=== PATIENT | male | born 1970 | race Caucasian/White ===

== ENCOUNTER 2023-08-16 07:47 | Day surgery (SDC) | payer BC, OTHER ==
[2023-08-16] MEDS ORDERED: LACTATED RINGERS 1,000 ML IV ONE (08:09)
[2023-08-16 08:20] VITALS: RESP 16; TEMP 97.1
[2023-08-16] MEDS ORDERED: LACTATED RINGERS 1,000 ML IV SCH (08:49)
[2023-08-16] MEDS ORDERED: PROPOFOL 10 MG/ML 20 ML VIAL IV ONE (09:38)
[2023-08-16] MEDS ORDERED: LIDOCAINE 1% INJ 10MG/ML (20 ML MDV) ONE (09:38)
--- NOTE | 2023-08-16 09:44 | P.GSHP ---
History of Present Illness H&P Date: 08/16/23 Chief Complaint: GERD, screening colonoscopy Is a 53-year-old male who complains of GERD symptoms. Patient stated for EGD and screening colonoscopy. Past Medical History Past Medical History: Cancer, GERD/Reflux Additional Past Medical History / Comment(s): brain cancer 23 yrs ago, ringing in ears History of Any Multi-Drug Resistant Organisms: None Reported Past Surgical History: No Surgical Hx Reported Additional Past Surgical History / Comment(s): brain surgery, cataract removal Past Anesthesia/Blood Transfusion Reactions: No Reported Reaction Smoking Status: Never smoker - Past Family History Father Family Medical History: No Reported History Medications and Allergies Home Medications Medication Instructions Recorded Confirmed Type Omeprazole 40 mg PO DAILY 08/10/23 08/16/23 History Allergies Allergy/AdvReac Type Severity Reaction Status Date / Time No Known Allergies Allergy Verified 08/16/23 08:06 Surgical - Exam Vital Signs Temp Pulse Resp BP Pulse Ox 97.1 F L 78 16 147/82 96 08/16/23 08:10 08/16/23 08:10 08/16/23 08:10 08/16/23 08:10 08/16/23 08:10 - General well developed, well nourished, no distress - Eyes PERRL - ENT normal pinna - Neck no masses - Respiratory normal expansion - Cardiovascular Rhythm: regular - Abdomen Abdomen: soft, non tender Assessment and Plan Assessment: Esophageal reflux will perform EGD. Will also perform screening colonoscopy.
--- NOTE | 2023-08-16 10:14 | P.OP ---
Date of Procedure: 08/16/23 Preoperative Diagnosis: GERD Screening colonoscopy Postoperative Diagnosis: Antral gastritis Moderate size hiatal hernia Mild esophagitis Mild diverticulosis Procedure(s) Performed: EGD Colonoscopy Anesthesia: MAC Surgeon: Israel Guerrero Pathology: other (Trim, esophagus) Condition: stable Disposition: PACU Description of Procedure: Patient placed on the endoscopy table in the lateral position. He received IV sedation. The Candi/oropharynx passed in the esophagus and the stomach. Scope was then placed through the pylorus. The first and second portion of the duodenum appeared normal. Scope in the back of the antrum there was mild inflammation. A biopsy was performed. The scope was then retroflexed and there was a moderate size hiatal hernia. The GE junction was at 38 cm. The distal esophagus appeared n Flaim. Biopsies performed. There was a mild inflammatory web seen. The proximal esopha thickness appeared normal. Next digital rectal exam was performed. This revealed no abnormalities. The e colonoscope was then placed patient anus passed throughout the entire colon. The ileocecal valve was visualized. The cecum, ascending and transverse colon appeared normal. In the descending and sigmoid colon there was mild diverticular changes. The scope was then brought back into the rectum and the spinal prescription outpatient.
[2023-08-16 10:53] VITALS: BP 137/86; PULSE 76
== END 2023-08-16 11:03 | disposition home or self-care (01) ==
LOC: ORWHC2ENDO 07:47
PROVIDERS: ATTEND Surgery
DX: Z12.11 Encounter for screening for malignant neoplasm of colon (principal); K21.00 Gastro-esophageal reflux disease with esophagitis, without bleeding; K44.9 Diaphragmatic hernia without obstruction or gangrene; K57.30 Diverticulosis of large intestine without perforation or abscess without bleeding; Z85.841 Personal history of malignant neoplasm of brain; Z79.899 Other long term (current) drug therapy; Z98.890 Other specified postprocedural states
CPT/HCPCS: 88305; 45378; 43239; J2001; J2704

== ENCOUNTER → 2023-09-26 | Outpatient (CLI) | payer BC ==
[2023-09-27 04:08] LABS: Basophils # (A) 0.08 X 10*3/uL (0.00-0.10); Basophils % (A) 0.9 %; Eosinophils # (A) 0.32 X 10*3/uL (0.04-0.35); Eosinophils % (A) 3.4 %; HCT 46.5 % (39.6-50.0); HGB 15.5 g/dL (13.0-17.0); Lymphocytes # (A) 3.03 X 10*3/uL (0.90-5.00); Lymphocytes % (A) 32.4 %; MCH 30.8 pg (27.0-32.0); MCHC 33.3 g/dL (32.0-37.0); MCV 92.3 FL (80.0-97.0); Mean Platelet Volume 9.9 FL (9.5-12.2); Monocytes % (A) 8.5 %; NRBC Per 100 WBC 0 X 10*3/uL (0.00-0.01); Neutrophils % (A) 54.5 %; Platelet Count 265 X 10*3/uL (140-440); RBC 5.04 X 10*6/uL (4.40-5.60); WBC 9.36 X 10*3/uL (4.50-10.00)
== END | disposition home or self-care (01) ==
LOC: LABPAT 16:15
PROVIDERS: ATTEND Surgery
DX: Z01.812 Encounter for preprocedural laboratory examination (principal); K21.00 Gastro-esophageal reflux disease with esophagitis, without bleeding
CPT/HCPCS: 36415; 85025

== ENCOUNTER 2023-10-05 07:53 | Inpatient (IN) | payer BC ==
[~2023-10-05 07:53] MED LIST: MIDAZOLAM 2 MG/2 ML VIAL IV PRN
[2023-10-05] MEDS: LACTATED RINGERS 1,000 ML IV SCH (08:33)
[2023-10-05] MEDS: ONDANSETRON 4 MG/2 ML VIAL IVP ONE (09:05)
[2023-10-05] MEDS: HEPARIN SODIUM,PORCINE 5,000 UNIT/ML 1 ML VIAL SQ PRN (09:05)
[2023-10-05] MEDS: ACETAMINOPHEN TAB 500 MG TAB PO PRN (09:05)
[2023-10-05] MEDS: DEXAMETHASONE SOD PHOSPHATE 4 MG/ML 1 ML VIAL IV ONE (09:05)
[2023-10-05] MEDS: FAMOTIDINE 20 MG/2 ML VIAL IVP ONE (09:06)
[2023-10-05] MEDS: LIDOCAINE 1%-EPI 1:100,000 50 ML VIAL SQ ONE (10:36)
[2023-10-05] MEDS: LACTATED RINGERS 1,000 ML IV ONE (11:04)
--- NOTE | 2023-10-05 11:21 | P.OP ---
Date of Procedure: 10/05/23 Preoperative Diagnosis: GERD Postoperative Diagnosis: GERD Procedure(s) Performed: Laparoscopic Jessica fundal plication Anesthesia: ELIOT Surgeon: Israel Guerrero Estimated Blood Loss (ml): 5 Pathology: none sent Condition: stable Disposition: PACU Description of Procedure: The patient was placed on the operating table in the supine position. The patient received general anesthesia. And was placed in dorsal lithotomy position. The patient was prepped and draped in the usual sterile fashion. The skin incision sites were anesthetized with 1% local Xylocaine. The skin was incised in the left periumbilical area and then using a blade less 5 mm trocar under direct visualization panel cavity was entered. After adequate insufflation the laparoscope was then placed into the peritoneal cavity. Next a 5 mm trochars placed in the right epigastric position. Another 5 millimeter trocar the right lateral position. Another 5 millimeter trocar in the left lateral position a 5 mm trocar is placed in the left epigastric position. And then the initial 5 mm trocar was exchanged for a 10 mm trocar. The left lateral lobe liver was retracted. The hernia was seen. The crural defect was then dissected using the Harmonic scissors device. A 360 crural dissection was p erformed the esophagus stomach was reduced back into the peritoneal Cavity. The crural defect was then closed using 2-0 Ethibond suture. Next the fundus of the stomach was mobilized using the Kent scissors device. and then a 58-Micronesian bougie dilator was placed oropharynx passed into the esophagus and stomach the fundal plication wrap was then performed by grasping the fundus posteriorly and bringing it around the esophagus and stomach fundoplication was then performed using 2-0 Ethibond suture. Care was taken that the fundal location rested over top of the intra-abdominal esophagus. There was no injury seen to the stomach or esophagus. The dilator was then withdrawn. The abdomen was irrigated there is no bleeding seen. The trochars were then withdrawn and then skin incision sites were closed using 3-0 Monocryl suture Steri-Strips are applied. Patient thought procedure well and sent to recovery room in stable condition.
[2023-10-05] MEDS: HYDROmorphone 0.5 MG/0.5 ML SYRINGE IVP PRN (12:00)
[2023-10-05 14:20] VITALS: BMI 28.0
[2023-10-05] MEDS: SCOPOLAMINE 1 MG/72 HR PATCH TRANSDERM ONE (15:46)
[2023-10-05] MEDS: D5-0.45% NACL WITH KCL 20MEQ/L 1,000 ML IV SCH (15:46)
[2023-10-05] MEDS: ONDANSETRON 4 MG/2 ML VIAL IVP PRN (16:31)
[2023-10-05] MEDS: HYDROmorphone 1 MG/ML 1 ML SYRINGE IVP PRN (22:32)
[2023-10-06] MEDS: ENOXAPARIN 40 MG/0.4 ML SYRINGE SQ SCH (07:44)
[2023-10-06 07:59] LABS: HCT 43.4 % (39.0-53.0); MCH 30.2 pg (25.0-35.0); MCHC 32.3 g/dL (31.0-37.0); MCV 93.4 fL (80.0-100.0); Mean Platelet Volume 7.7; Platelet Count 238 k/uL (150-450); RBC 4.65 m/uL (4.30-5.90); RDW 12.8 % (11.5-15.5); WBC 15.1 k/uL (3.8-10.6)
[2023-10-06 08:04] LABS: African American GFR (CKD) >90 (>60 ml/min/1.73 sqM); Anion Gap 10 mmol/L; Blood Urea Nitrogen 12 mg/dL (9-20); Calcium 9.2 mg/dL (8.4-10.2); Carbon Dioxide 22 mmol/L (22-30); Chloride 108 mmol/L (98-107); Glucose 105 mg/dL (74-99); Non-African American GFR(CKD) >90 (>60 ml/min/1.73 sqM); Potassium 4.4 mmol/L (3.5-5.1); Sodium 140 mmol/L (137-145)
[2023-10-06 09:19] VITALS: BP 134/80; PULSE 79; RESP 18; TEMP 97.3
--- NOTE | 2023-10-06 11:31 | P.PN ---
Progress Note - Text Progress Note Date: 10/06/23 Patient seen postoperatively day #1 from Jessica fundoplication. Patient is tolerating diet. Abdomen is soft incisions are clean dry and intact. Patient is anxious to go home. Patient will follow-up with Dr. Bustillos
--- NOTE | 2023-10-06 12:13 | P.CONS ---
History of Present Illness - Reason for Consult Consult date: 10/06/23 - History of Present Illness This is a pleasant 54-year-old male with medical history significant for gastroesophageal reflux disease as well as brain cancer with residual tinnitus. Patient is seen in follow-up today he is postoperative day #1 laparoscopic Jessica fundoplication. He is reporting minimal incisional abdominal discomfort. He is passing gas. He did tolerate the clear liquid diet today. He has no chest pain no shortness of breath no nausea vomiting or diarrhea noted. He has been up ambulating postsurgical. His white blood cell count is 15.1, sodium 140, potassium 4.4, BUN of 12, creatinine of 0.85. Magnesium is 2.0. Is evaluated today on the medical floor doing well and has been cleared by surgery for discharge home and to follow-up close with his primary surgeon Dr. Santos May in 1 to 2 weeks. He has instructions regarding the postoperative diet at the bedside. Medically he can be discharged home. REVIEW OF SYSTEMS: CONSTITUTIONAL: No fever, no malaise, no fatigue. HEENT: No recent visual problems or hearing problems. Denied any sore throat. CARDIOVASCULAR: No chest pain, orthopnea, PND, no palpitations, no syncope. PULMONARY: No shortness of breath, no cough, no hemoptysis. GASTROINTESTINAL: No diarrhea, no nausea, no vomiting, no abdominal pain. NEUROLOGICAL: No headaches, no weakness, no numbness. HEMATOLOGICAL: Denies any bleeding or petechiae. GENITOURINARY: Denies any burning micturition, frequency, or urgency. MUSCULOSKELETAL/RHEUMATOLOGICAL: Denies any joint pain, swelling, or any muscle pain. ENDOCRINE: Denies any polyuria or polydipsia. The rest of the 14-point review of systems is negative. PHYSICAL EXAMINATION: GENERAL: The patient is alert and oriented x3, not in any acute distress. Well developed, well nourished. HEENT: Pupils are round and equally reacting to light. EOMI. No scleral icterus. No conjunctival pallor. Normocephalic, atraumatic. No pharyngeal erythema. No thyromegaly. CARDIOVASCULAR: S1 and S2 present. No murmurs, rubs, or gallops. PULMONARY: Chest is clear to auscultation, no wheezing or crackles. ABDOMEN: Soft, nontender, nondistended, normoactive bowel sounds. No palpable organomegaly. Post surgical abdomen laproscopic incisions intact. MUSCULOSKELETAL: No joint swelling or deformity. EXTREMITIES: No cyanosis, clubbing, or pedal edema. NEUROLOGICAL: Gross neurological examination did not reveal any focal deficits. SKIN: No rashes. Assessment and plan Gastroesophageal reflux disease postoperative day #1 laparoscopic Jessica fundoplication patient will discharge home on the Jessica clear liquid diet and follow-up with the surgeon in 1 to 2 weeks. History of brain cancer with surgery 23 years ago. Leukocytosis expected postoperatively patient instructed to continue with his incentive spirometer on discharge GI prophylaxis to continue on PPI Medically patient is cleared for discharge. He has recommended to see his primary care provider Gorge Mendez post discharge. Patient instructed to call Dr Castano office sunday to make a follow up appointment. Continue wit incentive spirometer and recommending to continue on bowel regimen while using narcotics for pain management. Thank you kindly for this consultation. The impression and plan of care has been dictated by Rosario Bobo, Nurse Practitioner as directed. Dr. Anuja MD I have performed a history and physical examination and medical decision making of this patient, discussed the same with the dictator, and agree with the dictators assessment and plan as written, documented as a scribe. Based on total visit time, I have performed more than 50% of this visit. Past Medical History Past Medical History: Cancer, GERD/Reflux Additional Past Medical History / Comment(s): brain cancer 23 yrs ago, ringing in ears History of Any Multi-Drug Resistant Organisms: None Reported Past Surgical History: No Surgical Hx Reported Additional Past Surgical History / Comment(s): brain surgery, cataract removal, colonoscopy, EGD Past Anesthesia/Blood Transfusion Reactions: No Reported Reaction Past Psychological History: No Psychological Hx Reported Smoking Status: Never smoker Past Alcohol Use History: Occasional Past Drug Use History: None Reported - Past Family History Father Family Medical History: No Reported History Medications and Allergies Home Medications Medication Instructions Recorded Confirmed Type Omeprazole 40 mg PO QAM 08/10/23 10/05/23 History Acetaminophen Tab [Tylenol] 650 mg PO Q6H #30 tab 10/05/23 Rx Docusate [Colace] 100 mg PO BID #20 capsule 10/05/23 Rx Ibuprofen [Motrin] 600 mg PO Q6HR PRN #40 tab 10/05/23 Rx oxyCODONE HCL [OxyIR] 5 mg PO Q6H PRN 3 Days #10 tab 10/05/23 Rx Allergies Allergy/AdvReac Type Severity Reaction Status Date / Time No Known Allergies Allergy Verified 10/05/23 09:37 Physical Exam Vitals: Vital Signs Temp Pulse Resp BP Pulse Ox 10/06/23 07:50 97.3 F L 79 18 134/80 95 10/06/23 02:00 98.2 F 96 16 120/51 96 10/05/23 20:00 98.0 F 107 H 18 135/79 94 L 10/05/23 16:37 94 20 10/05/23 15:23 94 125/72 97 10/05/23 15:08 92 129/80 94 L 10/05/23 14:53 98 143/82 89 L 10/05/23 14:38 95 135/72 88 L 10/05/23 14:21 97.4 F L 97 20 133/77 95 10/05/23 13:30 99 16 151/80 96 10/05/23 13:00 101 H 16 144/74 96 10/05/23 12:45 90 16 150/88 96 10/05/23 12:30 87 16 140/82 97 10/05/23 12:15 82 16 143/74 98 10/05/23 12:00 74 16 149/78 100 10/05/23 11:45 87 16 146/74 98 10/05/23 11:30 89 18 159/79 100 10/05/23 11:16 97.2 F L 111 H 12 155/72 99 Intake and Output 10/05/23 10/06/23 10/06/23 22:59 06:59 14:59 Intake Total 750 Balance 750 Intake: Intake, IV Titration 750 Amount D5-0.45% NaCl with KCl 750 20Meq/l 1,000 ml @ 125 mls/hr IV .Q8H [facility] Rx#: [id number] Other: # Voids 1 2 Weight 86 kg Results CBC & Chem 7: 10/06/23 06:44 10/06/23 06:44 Labs: Abnormal Lab Results - Last 24 Hours (Table) 10/06/23 10/06/23 Range/Units 06:44 06:44 WBC 15.1 H (3.8-10.6) k/uL Chloride 108 H (98-107) mmol/L Glucose 105 H (74-99) mg/dL Assessment and Plan Time with Patient: Less than 30
== END 2023-10-06 12:38 | disposition home or self-care (01) | DRG 328 ==
LOC: 2ORMAIN 07:53 → 4SSUR 13:23
PROVIDERS: ADMIT Surgery; ATTEND Surgery
PROC: 0DV44ZZ Restriction of Esophagogastric Junction, Percutaneous Endoscopic Approach (ICD-10-PCS; principal; 2023-10-05 09:20)
DX: K21.9 Gastro-esophageal reflux disease without esophagitis (principal); D72.828 Other elevated white blood cell count; H93.13 Tinnitus, bilateral; Z85.841 Personal history of malignant neoplasm of brain
CPT/HCPCS: 80048; 83735; 85027

== ENCOUNTER → 2023-11-12 | Outpatient (CLI) | payer BC ==
--- NOTE | 2023-11-12 21:00 | MR ---
MRI brain without contrast. HISTORY: Attitude change in dizziness. Tinnitus. Patient states is a history of brain cancer. COMPARISON: 11/01/2015. TECHNIQUE: Multiecho multiplanar images of brain were obtained without contrast. FINDINGS: The ventricles, basal cisterns and sulci with convexities are mildly to moderately prominent consiste nt with mild to moderate atrophy. There is marked encephalomalacia involving large portions of the posterior cerebral hemispheres which is stable possibly related to prior surgery. There is stable moderate to marked cerebellar atrophy. There is a large craniotomy defect involving the occipital cortex. Based on diffusion-weighted imaging, there is no acute ischemic event. There is no mass effect or shift of the midline structures. A few tiny scattered focal areas of abnor mal increased signal intensity in the white matter which are nonspecific findings and most likely ref lect mild chronic ischemic white matter change. Similar changes are identified within the william. 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 The intraorbital contents appear normal chest. There are mild chronic inflammatory changes in the sinuses. There is mild fluid in the left mastoid a ir cells. IMPRESSION: 1. Postsurgical changes and large areas of stable encephalomalacia involving the posterior fossa as d escribed above. 2. No acute ischemic event. No mass affect or shift of the midline structures. 3. Multiple tiny innumerable remote hemorrhages scattered throughout the brain parenchyma consistent with tiny remote microhemorrhages possibly related to cavernous hemangiomata
== END ==
LOC: RADMRIMAIN 19:45
PROVIDERS: ATTEND Family Medicine
DX: G93.89 Other specified disorders of brain (principal); R47.89 Other speech disturbances; Z85.841 Personal history of malignant neoplasm of brain
CPT/HCPCS: 70551